=== PATIENT | female | born 1960 | race Caucasian/White ===

== ENCOUNTER 2017-06-13 19:12 | Emergency (ER) | payer OTHER ==
[~2017-06-13] VITALS: Ht 167.6 cm; Wt 98.4 kg
[2017-06-13 19:41] VITALS: Ht 167.6 cm; Wt 98.4 kg
[2017-06-14 02:03] VITALS: BP 131/89
== END 2017-06-14 02:03 | disposition home or self-care (01) ==
LOC: ED 19:12
DX: J18.1 Lobar pneumonia, unspecified organism (principal)

== ENCOUNTER → 2017-10-12 | Outpatient (CLI) | payer OTHER | END | disposition home or self-care (01) | LOC: RD 14:39 | DX: J20.9 Acute bronchitis, unspecified (principal) ==